=== PATIENT | male | born 1955 | race Caucasian/White ===

== ENCOUNTER 2018-05-30 07:22 | Emergency (ER) | payer MEDICAID, SELFPAY ==
[~2018-05-30] VITALS: Ht 182.9 cm; Wt 73.0 kg
--- NOTE | 2018-05-30 07:46 | NUR ---
LAB AT BEDSIDE.
--- NOTE | 2018-05-30 07:46 | NUR ---
PT BIB [facility] FOR UPPER BACK PAIN WITH SPASMS, BEING SWEATY, AND THE TIP OF HIS TONGUE NUMB. PAIN 7/10. PT WAS GIVEN 100 FENTANYL AND 2 VERSED. PT IS ALERT, ORIENTED, WITH NAD. BP 130S/70S, HR 60S, 98% RA. FS: 82. PT IS CONNECTED TO THE MONITOR. CALL LIGHT WITHIN REACH. PT IS ALERT, ORIENTED, WITH NAD.
[2018-05-30 07:57] LABS: BASOPHILS % (AUTO) 0 % (0-1); EOSINOPHILS # (AUTO) 0.03 x10^3/uL (0-0.4); EOSINOPHILS % (AUTO) 0 % (1-7); LYMPHOCYTES # (AUTO) 1.03 x10^3/uL (1-3.4); LYMPHOCYTES % (AUTO) 8 % (22-44); MD NO; MEAN CORPUSCULAR HGB CONC 33.5 g/dL (33.2-36.2); MEAN CORPUSCULAR VOLUME 95.5 fL (81-97); MONOCYTES # (AUTO) 0.31 x10^3/uL (0.2-0.8); MONOCYTES % (AUTO) 3 % (2-9); NEUTROPHILS # (AUTO) 11.31 x10^3/uL (1.8-6.8); NEUTROPHILS % (AUTO) 89 % (42-75); PLATELET COUNT 198 x10^3/uL (130-400); RED BLOOD COUNT 4.88 x10^6/uL (4.38-5.82); RED CELL DISTRIBUTION WIDTH 14.2 % (9.4-14.8)
--- NOTE | 2018-05-30 07:59 | NUR ---
PT TAKEN TO X RAY.
[2018-05-30] MEDS ORDERED: SODIUM CHLORIDE FLUSH 10ML SYR IVF ONE (08:00)
[2018-05-30 08:10] LABS: ALANINE AMINOTRANSFERASE 21 U/L (12-78); ANION GAP 7 mmol/L (5-15); CALCIUM 9.1 mg/dL (8.5-10.1); CHLORIDE 111 mmol/L (98-107); CREATININE 1.04 mg/dL (0.7-1.3)
[2018-05-30 08:12] LABS: ALKALINE PHOSPHATASE 81 U/L (45-117); BILIRUBIN,TOTAL 0.6 mg/dL (0.2-1.0)
--- NOTE | 2018-05-30 08:20 | NUR ---
PT BACK FROM XR. VSS. PT TAKEN TO CT IN STABLE CONDITION.
[2018-05-30] MEDS ORDERED: OMNIPAQUE 350 MG/ML, 100ML BOTTLE ONE (08:43)
--- NOTE | 2018-05-30 08:44 | NUR ---
PT IS BACK IN ROOM RESTING IN BED, TALKING WITH REGISTRATION, RESPIRATIONS EQUAL AND NON LABORED. NAD. PT IS CONNECTED TO THE MONITOR. CALL LIGHT WITHIN REACH. SIDE RAILS UP. SEIZURE PADS IN PLACE.
[2018-05-30] MEDS ORDERED: LEVETIRACETAM 1,000 MG in SODIUM CHLORIDE 0.9% 100 ML IV ONE (09:00)
--- NOTE | 2018-05-30 09:57 | NUR ---
PT MEDICATED PER ORDER.
[2018-05-30] MEDS ORDERED: DIPH25CA61 PO (10:02)
[2018-05-30] MEDS ORDERED: KETOROLAC 30 MG/1 ML IM ONE (10:30)
[2018-05-30] MEDS ORDERED: KETOROLAC 30 MG/1 ML ONE (10:39)
[2018-05-30 10:43] VITALS: BP 151/88
--- NOTE | 2018-05-30 11:15 | NUR ---
Patient given discharge instructions and they have confirmed that they understand the instructions. Patient taken out of ED via wheelchair.
== END 2018-05-30 11:18 | disposition home or self-care (01) ==
LOC: ED 08:47
DX: M48.54XA Collapsed vertebra, not elsewhere classified, thoracic region, initial encounter for fracture (principal); J44.9 Chronic obstructive pulmonary disease, unspecified; M06.9 Rheumatoid arthritis, unspecified; X58.XXXA Exposure to other specified factors, initial encounter; Y93.89 Activity, other specified; Y92.89 Other specified places as the place of occurrence of the external cause; Y99.8 Other external cause status
CPT/HCPCS: 36415; 70450; 71046; 71275; 80053; 85025; 93005; 96372; 96374; 99284; J1885; J1953; Q9967; 96365

== ENCOUNTER 2018-09-19 03:48 | Observation (INO) | payer MEDICAID ==
[~2018-09-19] VITALS: Ht 182.9 cm; Wt 75.8 kg
[~2018-09-19 03:48] MED LIST: DIPH25CA61 PO
--- NOTE | 2018-09-19 03:59 | NUR ---
Pt presents to ed c/o room mate finding him complaining of L shoulder pain tonight. Presents to ed w/ severe L upper back pain that he cant sit up to take shirt off. Given 200 mcg fentanyl w/ no relief from pain. Room mate states pt was "out of it" directly after event. A+ox4 for [facility] and ed. Blood in mouth and potential oral trauma. States he has had 1 seizure apr 2018. Denies sz since then. No incontinence noted. Seizured pads applied. All monitoring in place. Pt unable to sit up to take shirt off, gown post poned at this time. Iv access established by [facility].
--- NOTE | 2018-09-19 04:15 | NUR ---
Pt placed on 2L nc for ra sat of 88%. Sat of 97% observed. No immediate needs from pt. Awaiting lab results for ct.
[2018-09-19 04:41] LABS: BASOPHILS # (AUTO) 0.04 x10^3/uL (0-0.1); BASOPHILS % (AUTO) 0 % (0-1); EOSINOPHILS # (AUTO) 0.13 x10^3/uL (0-0.4); EOSINOPHILS % (AUTO) 1 % (1-7); LYMPHOCYTES # (AUTO) 1.46 x10^3/uL (1-3.4); LYMPHOCYTES % (AUTO) 11 % (22-44); MD NO; MEAN CORPUSCULAR HEMOGLOBIN 32.5 pg (27.5-34.5); MEAN CORPUSCULAR HGB CONC 32.9 g/dL (33.2-36.2); MEAN CORPUSCULAR VOLUME 98.6 fL (81-97); MONOCYTES # (AUTO) 0.59 x10^3/uL (0.2-0.8); MONOCYTES % (AUTO) 5 % (2-9); NEUTROPHILS # (AUTO) 10.92 x10^3/uL (1.8-6.8); NEUTROPHILS % (AUTO) 83 % (42-75); PLATELET COUNT 180 x10^3/uL (130-400); RED BLOOD COUNT 4.54 x10^6/uL (4.38-5.82); RED CELL DISTRIBUTION WIDTH 14.3 % (9.4-14.8)
[2018-09-19 04:54] LABS: ALBUMIN 3.4 g/dL (3.4-5.0); ANION GAP 5 mmol/L (5-15); CALCIUM 7.6 mg/dL (8.5-10.1); CHLORIDE 114 mmol/L (98-107)
[2018-09-19 04:59] LABS: ALANINE AMINOTRANSFERASE 19 U/L (12-78); ALKALINE PHOSPHATASE 63 U/L (45-117); BILIRUBIN,TOTAL 0.6 mg/dL (0.2-1.0); CREATININE 0.81 mg/dL (0.7-1.3); TOTAL PROTEIN 6.5 g/dL (6.4-8.2); TROPONIN I < 0.015 ng/mL (0.000-0.045)
--- NOTE | 2018-09-19 05:05 | NUR ---
RECEIVED REPORT FROM SALINA MEJIA TO ASSUME CARE OF PT. PT. TO CT VIA GURGLIDDEN AT THIS TIME. MARGARET PHILIP ON GURNEY.
[2018-09-19] MEDS ORDERED: OMNIPAQUE 350 MG/ML, 100ML BOTTLE ONE (05:46)
--- NOTE | 2018-09-19 05:53 | NUR ---
Armando rn:No immediate needs from pt. Pt offered sheet or warm blanket. Refused both at this time. Awaiting ct results.
--- NOTE | 2018-09-19 06:13 | NUR ---
PT. PROVIDED WITH AN EXTRA PILLOW AND ASSISTED TO REPOSITION FOR COMFORT. PT. DENIES FURTHER NEEDS AT THIS TIME. ALL MONITORS IN PLACE. CALL LIGHT IN REACH. ALL SAFETY MEASUERS OBSERVED. AWAITNG CT READS.
[2018-09-19] MEDS ORDERED: FEXO1TAB29 PO (06:39)
[2018-09-19] MEDS ORDERED: ONDANSETRON 2MG/ML, 2ML IVPush PRN (07:00)
[2018-09-19] MEDS ORDERED: MORPHINE SULFATE 4 MG/ML, 1ML IVPush PRN (07:00)
--- NOTE | 2018-09-19 07:01 | NUR ---
Recieved bedside report from SALINA Bardales. All questions answered. Assuming care of pt.
[2018-09-19] MEDS ORDERED: MORPHINE SULFATE 4 MG/ML, 1ML ONE (07:03)
[2018-09-19] MEDS ORDERED: ONDANSETRON 2MG/ML, 2ML ONE (07:03)
--- NOTE | 2018-09-19 07:06 | NUR ---
[facility]R AT BS TO EVAL PT. FOR ADMISSION.
--- NOTE | 2018-09-19 07:11 | NUR ---
MORPHINE 4MG, ZOFRAN 4MG WASTED IN OMNICELL WITH TRINITY DURHAM RN A WITNESS. MACHINE DID NOT ASK FOR A WITNESS LOG IN. MEDICATION NOT GIVEN UNR MD WAS IN FOR EVAL AND PT. VERY SLOW TO RESPOND TO QUESTIONS. PT. PAIN IMPROVED WITH REPOSITIONING.
[2018-09-19] MEDS ORDERED: ENALAPRILAT 1.25 MG/ML, 2ML IVPush PRN (07:30)
[2018-09-19] MEDS ORDERED: ONDANSETRON ODT 4 MG PO PRN (07:30)
--- NOTE | 2018-09-19 07:36 | NUR ---
Provided report to SALINA Garrison. All questions answered. Pt ready to transfer to floor from ED.
--- NOTE | 2018-09-19 08:13 | NUR ---
Pt transfered to floor from ED and left with all personal belongings.
[2018-09-19] MEDS ORDERED: CYCLOBENZAPRINE 10 MG TABLET PO PRN (08:30)
[2018-09-19] MEDS: [UNRECOGNIZED DRUG - REMARK] MC SCH ×2 (08:30→15:25)
[2018-09-19 08:32] VITALS: BP 132/82
[2018-09-19] MEDS: NICOTINE 14MG/24 HR PATCH.TD24 TD SCH (08:59)
[2018-09-19] MEDS: morphine SULFATE 10 MG/ML, 1ML IVPush PRN ×3 (08:59→21:44)
[2018-09-19] MEDS: HEPARIN 5,000 UNITS/ML, 1ML SQ SCH ×2 (08:59→16:38)
[2018-09-19] MEDS: SENNA/DOCUSATE TABLET PO SCH (09:00)
[2018-09-19 12:08] LABS: AMPHETAMINE SCREEN, URINE Negative (Negative); BARBITURATE SCREEN, URINE Negative (Negative); BENZODIAZEPINE SCREEN, URINE Negative (Negative); CANNABINOID SCREEN, URINE Positive (Negative); COCAINE SCREEN, URINE Negative (Negative); METHADONE SCREEN, URINE Negative (Negative)
[2018-09-19 12:10] LABS: OPIATE SCREEN, URINE Negative (Negative)
[2018-09-19 12:32] VITALS: BP_DIAS 115
[2018-09-19] MEDS: OXYcodone 5 MG/5 ML ORAL.SOL UDC PO PRN (16:38)
[2018-09-19] MEDS ORDERED: GADOBUTROL 7.5 MMOL/7.5 ML PFS ONE (17:54)
[2018-09-19 20:19] VITALS: BP 116/74
[2018-09-20] MEDS: OXYcodone 5 MG/5 ML ORAL.SOL UDC PO PRN (00:07)
[2018-09-20] MEDS: HEPARIN 5,000 UNITS/ML, 1ML SQ SCH ×3 (00:07→15:15)
[2018-09-20 00:24] VITALS: BP 123/73
[2018-09-20] MEDS: [UNRECOGNIZED DRUG - REMARK] MC SCH ×3 (00:30→15:10)
[2018-09-20] MEDS ORDERED: ALENDRONATE 70 MG TABLET PO SCH (06:30)
[2018-09-20 06:47] LABS: CHLORIDE 108 mmol/L (98-107)
[2018-09-20 06:48] LABS: CALCIUM 8.7 mg/dL (8.5-10.1)
[2018-09-20 06:54] LABS: BASOPHILS # (AUTO) 0.03 x10^3/uL (0-0.1); BASOPHILS % (AUTO) 0 % (0-1); EOSINOPHILS # (AUTO) 0.03 x10^3/uL (0-0.4); EOSINOPHILS % (AUTO) 0 % (1-7); LYMPHOCYTES # (AUTO) 1.22 x10^3/uL (1-3.4); LYMPHOCYTES % (AUTO) 13 % (22-44); MD NO; MEAN CORPUSCULAR HEMOGLOBIN 32.4 pg (27.5-34.5); MEAN CORPUSCULAR HGB CONC 33.4 g/dL (33.2-36.2); MEAN CORPUSCULAR VOLUME 96.9 fL (81-97); MEAN PLATELET VOLUME 8.7 fL (7.4-10.4); MONOCYTES # (AUTO) 0.58 x10^3/uL (0.2-0.8); MONOCYTES % (AUTO) 6 % (2-9); NEUTROPHILS % (AUTO) 80 % (42-75); PLATELET COUNT 195 x10^3/uL (130-400); RED BLOOD COUNT 4.59 x10^6/uL (4.38-5.82); RED CELL DISTRIBUTION WIDTH 14.6 % (9.4-14.8)
[2018-09-20 06:55] LABS: ANION GAP 10 mmol/L (5-15); CALCIUM 8.4 mg/dL (8.5-10.1); CREATININE 0.91 mg/dL (0.7-1.3)
[2018-09-20 07:05] VITALS: BP 144/81
[2018-09-20] MEDS ORDERED: POTASSIUM CHLORIDE 20 MEQ TAB.ER.PRT PO ONE (08:30)
[2018-09-20] MEDS ORDERED: POTASSIUM CHLORIDE 10% 20 MEQ/15 ML UDC PO ONE (08:30)
[2018-09-20] MEDS: NICOTINE 14MG/24 HR PATCH.TD24 TD SCH (08:42)
[2018-09-20] MEDS: morphine SULFATE 10 MG/ML, 1ML IVPush PRN ×3 (08:42→20:54)
[2018-09-20] MEDS: SENNA/DOCUSATE TABLET PO SCH (08:52)
[2018-09-20 14:35] VITALS: BP 135/84
[2018-09-20 18:40] VITALS: BP 166/82
[2018-09-20 20:41] VITALS: BP 129/76
[2018-09-21 00:17] VITALS: BP 139/83
[2018-09-21] MEDS: [UNRECOGNIZED DRUG - REMARK] MC SCH ×3 (00:30→15:18)
[2018-09-21] MEDS: HEPARIN 5,000 UNITS/ML, 1ML SQ SCH ×4 (00:38→23:28)
[2018-09-21] MEDS ORDERED: ERGOCALCIFEROL 50,000 UNIT CAPSULE PO SCH (07:00)
[2018-09-21 07:25] VITALS: BP 138/87
[2018-09-21] MEDS: NICOTINE 14MG/24 HR PATCH.TD24 TD SCH (08:18)
[2018-09-21] MEDS: SENNA/DOCUSATE TABLET PO SCH (08:18)
[2018-09-21 13:52] VITALS: BP 147/85
[2018-09-21 19:22] VITALS: BP 149/79
[2018-09-22] MEDS: [UNRECOGNIZED DRUG - REMARK] MC SCH ×2 (00:30→08:11)
[2018-09-22 02:14] VITALS: BP 113/70
[2018-09-22 07:25] VITALS: BP 130/83
[2018-09-22] MEDS: SENNA/DOCUSATE TABLET PO SCH (08:12)
[2018-09-22] MEDS: HEPARIN 5,000 UNITS/ML, 1ML SQ SCH (08:12)
[2018-09-22] MEDS: NICOTINE 14MG/24 HR PATCH.TD24 TD SCH (08:12)
[2018-09-22] MEDS ORDERED: ERGO500017 PO (08:38)
[2018-09-22] MEDS ORDERED: ALEN70TA6 PO (08:38)
== END 2018-09-22 12:00 | disposition home or self-care (01) ==
LOC: ED 06:44 → INTOOBSV 06:45 → EDIP 06:45 → ED 06:52 → 4EST 08:03
PROVIDERS: ADMIT Family Medicine; ATTEND Family Medicine
DX: S22.079A Unspecified fracture of T9-T10 vertebra, initial encounter for closed fracture (principal); S22.089A Unspecified fracture of T11-T12 vertebra, initial encounter for closed fracture; M81.0 Age-related osteoporosis without current pathological fracture; E55.9 Vitamin D deficiency, unspecified; F17.210 Nicotine dependence, cigarettes, uncomplicated; G40.401 Other generalized epilepsy and epileptic syndromes, not intractable, with status epilepticus; J44.1 Chronic obstructive pulmonary disease with (acute) exacerbation; W19.XXXA Unspecified fall, initial encounter; Z79.899 Other long term (current) drug therapy; Y93.89 Activity, other specified; Y92.89 Other specified places as the place of occurrence of the external cause
CPT/HCPCS: 36415; 70450; 70553; 71275; 72128; 72157; 80048; 80053; 80307; 82306; 82310; 83735; 83970; 84100; 84484; 85025; 87040; 93005; 95819; 96372; 96374; 96376; 97162; 97166; 99285; A9585; G0378; J1644; J2270; Q0162; Q9967

== ENCOUNTER 2019-08-07 12:49 | Emergency (ER) | payer MEDICAID, OTHER ==
[~2019-08-07] VITALS: Ht 182.9 cm; Wt 81.8 kg
[~2019-08-07 12:49] MED LIST changes: +ALEN70TA6 PO; +ERGO500017 PO; +FEXO1TAB29 PO
--- NOTE | 2019-08-07 13:02 | NUR ---
BIB EMS FROM HOME. EMS WAS CONTACTED BY PTS EMPLOYER WHO HAD A CONVERSATION VIA PHONE AND FELT THAT THE PT WAS SEEMED CONFUSED AND HAD TOLD HIM THAT HE FELL AND HIT HIS HEAD. EMS FOND PT ON FLOOR IN KITCHEN WITH LACERATION TO RIGHT SCALP AREA. PT WITH REPETATIVE MOVEMENTS AND A ROOMMATE WAS PRESENT WHO STATED THAT THE PT SOMETIMES HAS SEIZURES. EMS GAVE 5MG VERSED IM WITH IMPROVEMENT OF REPETATIVE MOVEMENTS. EMS PLACED C-COLLAR, FSBS= 177 WITH VSS. PT TRANSFERED TO ED [facility] ALL MONITORS PLACED. NO EYE OPENING OR RESPONSE TO VERBAL STIMULI BUT LOCALIZES AND GROANS TO STERNAL RUB.
--- NOTE | 2019-08-07 13:13 | NUR ---
TASK RN: ALEKSANDR RPT TO SALINA BLANK
--- NOTE | 2019-08-07 13:16 | NUR ---
REPORT RECEIVED FROM SALINA PETER. ASSUMING PRIMARY CARE OF PT.
--- NOTE | 2019-08-07 13:20 | NUR ---
THI AT BEDSIDE EVALUATING PT. PT WAS ABLE TO TELL MD NAME. PT WAS INFORMED THAT HE WAS AT THE HOSPITAL. PT FOLLOWED MD'S COMMANDS.
--- NOTE | 2019-08-07 13:25 | NUR ---
REPORT TO BREAK SALINA CULP.
--- NOTE | 2019-08-07 13:39 | NUR ---
BREAK RN: PT TO CT AT THIS TIME
[2019-08-07 14:10] LABS: BASOPHILS # (AUTO) 0.03 x10^3/uL (0-0.1); BASOPHILS % (AUTO) 0 % (0-1); EOSINOPHILS # (AUTO) 0.02 x10^3/uL (0-0.4); EOSINOPHILS % (AUTO) 0 % (1-7); LYMPHOCYTES # (AUTO) 0.71 x10^3/uL (1-3.4); LYMPHOCYTES % (AUTO) 6 % (22-44); MD NO; MEAN CORPUSCULAR HEMOGLOBIN 31.9 pg (27.5-34.5); MEAN CORPUSCULAR HGB CONC 33.4 g/dL (33.2-36.2); MEAN CORPUSCULAR VOLUME 95.5 fL (81-97); MEAN PLATELET VOLUME 8.3 fL (7.4-10.4); MONOCYTES # (AUTO) 0.41 x10^3/uL (0.2-0.8); MONOCYTES % (AUTO) 4 % (2-9); NEUTROPHILS # (AUTO) 10.61 x10^3/uL (1.8-6.8); NEUTROPHILS % (AUTO) 90 % (42-75); PLATELET COUNT 183 x10^3/uL (130-400); RED BLOOD COUNT 4.77 x10^6/uL (4.38-5.82); RED CELL DISTRIBUTION WIDTH 13.7 % (9.4-14.8)
[2019-08-07 14:16] LABS: INTERNATIONAL NORMALIZED RATIO 0.99 (0.93-1.1); PROTHROMBIN TIME 10.5 Seconds (9.6-11.5)
[2019-08-07 14:19] LABS: ALANINE AMINOTRANSFERASE 24 U/L (12-78); ALBUMIN 3.9 g/dL (3.4-5.0); ANION GAP 8 mmol/L (5-15); CHLORIDE 108 mmol/L (98-107); CREATININE 1.13 mg/dL (0.7-1.3); SALICYLATE LEVEL 2.5 mg/dL (2.8-20.0)
[2019-08-07 14:20] LABS: ALKALINE PHOSPHATASE 65 U/L (45-117); BILIRUBIN,TOTAL 0.3 mg/dL (0.2-1.0); TOTAL PROTEIN 7.9 g/dL (6.4-8.2)
--- NOTE | 2019-08-07 14:34 | NUR ---
PT MORE AWAKE ALERT AND ORIENTED. RN EXPLAINED TO PT WHAT HAD HAPPENED THIS AM. PT STATES HAS A HX OF SEIZURES BUT DOES NOT TAKE ANY MEDICATION FOR IT. RN TO INFORM ERMD THAT PT IS AWAKE.
[2019-08-07] MEDS ORDERED: CALC3.7S5 NAS (14:39)
--- NOTE | 2019-08-07 14:39 | NUR ---
PT PASSED SWALLOW EVALUATION. RN PROVIDED PT WITH WET WASH CLOTH TO WIPE OFF MOUTH.
[2019-08-07 14:45] LABS: MICROSCOPIC NOT IND
[2019-08-07 14:49] LABS: CULTURE INDICATED? NO
[2019-08-07 14:59] LABS: AMPHETAMINE SCREEN, URINE Negative (Negative); BARBITURATE SCREEN, URINE Negative (Negative); BENZODIAZEPINE SCREEN, URINE Positive (Negative); CANNABINOID SCREEN, URINE Positive (Negative); COCAINE SCREEN, URINE Negative (Negative); METHADONE SCREEN, URINE Negative (Negative); OPIATE SCREEN, URINE Negative (Negative)
[2019-08-07] MEDS ORDERED: LIDOCAINE-MPF 1%, 5ML INFIL ONE (15:30)
[2019-08-07] MEDS ORDERED: LIDOCAINE-MPF 1%, 5ML ONE (15:31)
[2019-08-07 15:33] VITALS: BP 139/82
--- NOTE | 2019-08-07 15:35 | NUR ---
RN OBTAINED SUTURES AND MEDICATION FOR ERMD.
--- NOTE | 2019-08-07 15:57 | NUR ---
MD AT BEDSIDE GETTING SUTURES.
[2019-08-07] MEDS ORDERED: LEVETIRACETAM 1,500 MG in SODIUM CHLORIDE 0.9% 100 ML IV ONE (16:00)
[2019-08-07] MEDS ORDERED: NEOSPORIN OINT. PKT 1 PACKET ONE (16:04)
--- NOTE | 2019-08-07 16:11 | NUR ---
OKAY FROM PATIENT TO CALL FRIEND JAMIN TO PICK HIM UP.
--- NOTE | 2019-08-07 16:34 | NUR ---
PT BEING DISCHARGED IN A STABLE CONDITION. FRIEND JAMIN TO PHARMACY TECHNOLOGIST PT. DC INSTRUCTIONS WERE DISCUSSED WITH PT. NO QUESTIONS OR CONCERNS WERE EXPRESSED AT THAT TIME. RN TO WHEEL PT OUT TO LOBBY AT 1645.
== END 2019-08-07 16:36 | disposition home or self-care (01) ==
LOC: ED 14:06
DX: S01.81XA Laceration without foreign body of other part of head, initial encounter (principal); R56.9 Unspecified convulsions; R41.82 Altered mental status, unspecified; J44.9 Chronic obstructive pulmonary disease, unspecified; Z90.49 Acquired absence of other specified parts of digestive tract; Z88.6 Allergy status to analgesic agent; W18.30XA Fall on same level, unspecified, initial encounter; Y93.89 Activity, other specified; Y92.89 Other specified places as the place of occurrence of the external cause; Y99.8 Other external cause status
CPT/HCPCS: 12052; 36415; 70450; 72125; 80053; 80307; 81003; 85025; 85610; 85730; 93005; 99285; J1953